=== PATIENT | male | born 1950 | race Caucasian/White ===

== ENCOUNTER 2019-10-06 16:50 | Emergency (ER) | payer BC, MEDICARE ==
[2019-10-06] MEDS ORDERED: Sodium Chloride 0.9% 1000 ML 1,000 ML IV STA (17:07)
[2019-10-06] MEDS ORDERED: solu-MEDROL 125 MG IV ONE (17:08)
[2019-10-06] MEDS ORDERED: DUONEB 0.5-3 MG/3 ml Neb IH ONE ×2 (17:08→17:17)
[2019-10-06 17:20] LABS: Absolute Neutrophil Ct (ANC) 9.93 (1.4-6.9); BASOPHIL % 0.2 % (0.0-0.4); Basophil (Absolute #) 0.03 (0-0.4); Eosinophil % 1.6 % (0.00-5.0); Hematocrit 40.4 % (42-50); Hemoglobin 14.3 gm/dl (12.5-18.0); Lymphocyte (Absolute #) 1.16 (1.0-4.6); Lymphocytes % 9.4 % (24.0-44.0); Mean Cell Volume 90.4 fl (78-100); Mean Corpuscular Hgb Concent. 35.4 g/dl (32-36); Mean Platelet Volume 10.5 fl (7.5-11.0); Monocyte (Absolute #) 1.03 (0.0-1.3); Monocytes % 8.3 % (0.0-12.0); Neutrophil % 80.5 % (36.0-66.0); Platelet Count 298 K/mm3 (150-450); Red Blood Count 4.47 M/mm3 (4.1-5.6); Red Cell Distribution Width 14.2 % (11.5-14.0); White Blood Count 12.4 K/mm3 (4.0-10.5)
[2019-10-06 17:24] VITALS: O2SAT 98
[2019-10-06] MEDS ORDERED: Sodium Chloride 0.9% 1000 ML 1,000 ML ONE (17:25)
[2019-10-06] MEDS ORDERED: solu-MEDROL 125 MG ONE (17:25)
[2019-10-06 17:43] LABS: INR 1.23 (0.8-3.0)
[2019-10-06 17:54] LABS: ANION GAP 12.4 MEQ/L (5-15); Calcium 9.4 mg/dL (8.4-10.2); Creatinine 1 3.75 mg/dL (0.66-1.25); Potassium 3.4 mmol/L (3.5-5.1); Total Protein 7.5 g/dL (6.3-8.2)
[2019-10-06 18:25] VITALS: BP 170/99; PULSE 78
--- NOTE | 2019-10-06 18:47 | ERPHSYRPT ---
- History of Present Illness Time Seen by Provider: 10/06/19 16:55 Historian: patient Exam Limitations: no limitations Patient Subjective Stated Complaint: shortness of breath for over one year. states it got worse over the past month. states he will not go to his primary care doctor. has been taking ibuprophen for body aches. Triage Nursing Assessment: ambulated to room per self. skin w/d, color normal. resp only slightly labored. c/o body aches. Physician History: Patient is here with shortness of breath, cough, cold, congestion. Symptoms have been going on for greater than 1 month. Patient has not seen a primary care physician for. Patient states he continues to smoke cigarettes. He has not seen a primary care doctor recently. States he has no diagnosed history of COPD. Patient does have a greater than 15-year history of a descending aortic aneurysm repair and dissection. Location: chest Quality: SOB, sharp Radiation: none Severity: moderate Duration: acute on chronic Timing: gradual Modifying factors/associated signs and symptoms: none tried Aspirin Treatment Today: no aspirin today Allergies/Adverse Reactions: No Known Drug Allergies Allergy (Unverified 10/06/19 17:19) Home Medications: Amlodipine Besylate [Norvasc] 10 mg PO DAILY 10/06/19 [History] Clopidogrel Bisulfate [Clopidogrel] 75 mg PO DAILY 10/06/19 [History] Metoprolol Tartrate [Lopressor] 50 mg PO DAILY 10/06/19 [History] cloNIDine HCL [Clonidine HCl] 0.2 mg PO BID 10/06/19 [History] Hx Tetanus, Diphtheria Vaccination/Date Given: Yes Hx Influenza Vaccination/Date Given: No Hx Pneumococcal Vaccination/Date Given: Yes - Review of Systems Constitutional: No Fever, No Chills Eyes: No Symptoms Ears, Nose, & Throat: No Symptoms, Nose Congestion Respiratory: Cough, Dyspnea, Wheezing Cardiac: Chest Pain, No Edema, No Syncope Abdominal/Gastrointestinal: No Abdominal Pain, No Nausea, No Vomiting, No Diarrhea Genitourinary Symptoms: No Dysuria Musculoskeletal: No Back Pain, No Neck Pain Skin: No Rash Neurological: No Dizziness, No Focal Weakness, No Sensory Changes Psychological: No Symptoms Endocrine: No Symptoms All Other Systems: Reviewed and Negative - Past Medical History Pertinent Past Medical History: Yes Cardiac History: Aneurysm, Coronary Artery Disease, Hypertension - Past Surgical History Past Surgical History: Yes Cardiac: Cardiac Catheterization, Cardiac Stent, Vascular Surgery Other Surgical History: abd aneurysm surgery twice. - Social History Smoking Status: Current every day smoker How long have you smoked: 50 Exposure to second hand smoke: Yes Drug Use: none Patient Lives Alone: No - Nursing Vital Signs Nursing Vital Signs: Initial Vital Signs Temperature 97.6 F 10/06/19 16:53 Pulse Rate 76 10/06/19 16:53 Respiratory Rate 24 10/06/19 16:53 Blood Pressure 184/113 10/06/19 16:53 O2 Sat by Pulse Oximetry 100 10/06/19 16:53 Pain Scale Pain Intensity 4 - Physical Exam General Appearance: no apparent distress, alert Eye Exam: PERRL/EOMI, eyes nml inspection Ears, Nose, Throat Exam: normal ENT inspection, moist mucous membranes Neck Exam: normal inspection, non-tender, supple, full range of motion Respiratory Exam: normal breath sounds, lungs clear, wheezing (Patient is wheezing throughout, tachypnea, looks uncomfortable), No respiratory distress Cardiovascular Exam: regular rate/rhythm, normal heart sounds, other (Incision under left breast. Abdominal incision is well. Previous aortic repairs.) Gastrointestinal/Abdomen Exam: soft (Incision is well.), No tenderness, No mass Back Exam: normal inspection, No CVA tenderness, No vertebral tenderness Extremity Exam: normal inspection, normal range of motion Neurologic Exam: alert, oriented x 3, cooperative, normal mood/affect, sensation nml, No motor deficits Skin Exam: normal color, warm, dry SpO2: 98 Ordered Tests: Active Orders 24 hr Category Date Time Status Banquet Captain STAT Care 10/06/19 17:08 Active EKG-ER Only STAT Care 10/06/19 17:07 Active IV Insertion STAT Care 10/06/19 17:07 Active Pulse Oximetry (ED) STAT Care 10/06/19 17:07 Active CBC W DIFF Stat Lab 10/06/19 17:12 Completed CMP Stat Lab 10/06/19 17:12 Completed NT PRO BNP Stat Lab 10/06/19 17:12 Completed PROTIME WITH INR Stat Lab 10/06/19 17:12 Completed TROPONIN Q3H Lab 10/06/19 17:12 Completed TROPONIN Q3H Lab 10/06/19 20:15 Ordered TROPONIN Q3H Lab 10/06/19 23:15 Ordered TROPONIN Q3H Lab 10/07/19 02:15 Ordered TROPONIN Q3H Lab 10/07/19 05:15 Ordered Peak Expiratory Flow Rate ONCE RT 10/06/19 17:21 Active Respiratory Therapy Assessment DAILY RT 10/06/19 17:21 Active Medication Summary Discontinued Medications Generic Name Dose Route Start Last Admin Trade Name Freq PRN Reason Stop Dose Admin Albuterol/Ipratropium 3 ml 10/06/19 17:08 10/06/19 17:18 Duoneb 0.5-3 Mg/3 Ml Neb IH 10/06/19 17:09 3 ml STAT ONE Administration Albuterol/Ipratropium Confirm 10/06/19 17:17 Duoneb 0.5-3 Mg/3 Ml Neb Administered 10/06/19 17:18 Dose 3 ml IH .STK-MED ONE Sodium Chloride 1,000 mls @ 999 mls/hr 10/06/19 17:07 10/06/19 17:29 Sodium Chloride 0.9% 1000 Ml IV 10/06/19 18:07 999 mls/hr .Q1H1M STA Administration Sodium Chloride Confirm 10/06/19 17:25 Sodium Chloride 0.9% 1000 Ml Administered 10/06/19 17:26 Dose 1,000 mls @ ud .ROUTE .STK-MED ONE Methylprednisolone Sodium Succinate 125 mg 10/06/19 17:08 10/06/19 17:29 Solu-Medrol 125 Mg IV 10/06/19 17:09 125 mg STAT ONE Administration Methylprednisolone Sodium Succinate Confirm 10/06/19 17:25 Solu-Medrol 125 Mg Administered 10/06/19 17:26 Dose 125 mg .ROUTE .STK-MED ONE Lab/Rad Data: Laboratory Result Diagrams 10/06/19 17:12 10/06/19 17:12 Laboratory Results 10/06/19 10/06/19 10/06/19 Range/Units 17:12 17:12 17:12 WBC (4.0-10.5) K/mm3 RBC (4.1-5.6) M/mm3 Hgb (12.5-18.0) gm/dl Hct (42-50) % MCV (78-100) fl MCH (26-32) pg MCHC (32-36) g/dl RDW (11.5-14.0) % Plt Count (150-450) K/mm3 MPV (7.5-11.0) fl Gran % (36.0-66.0) % Eos # (Auto) (0-0.5) Absolute Lymphs (auto) (1.0-4.6) Absolute Monos (auto) (0.0-1.3) Lymphocytes % (24.0-44.0) % Monocytes % (0.0-12.0) % Eosinophils % (0.00-5.0) % Basophils % (0.0-0.4) % Absolute Granulocytes (1.4-6.9) Basophils # (0-0.4) PT 14.0 H (8.83-12.87) SECONDS INR 1.23 (0.8-3.0) Sodium 142 (137-145) mmol/L Potassium 3.4 L (3.5-5.1) mmol/L Chloride 106 (98-107) mmol/L Carbon Dioxide 28 (22-30) mmol/L Anion Gap 12.4 (5-15) MEQ/L BUN 26 H (9-20) mg/dL Creatinine 3.75 H (0.66-1.25) mg/dL Estimated GFR 17.2 ML/MIN Glucose 180 H (74-106) mg/dL Calcium 9.4 (8.4-10.2) mg/dL Total Bilirubin 1.00 (0.2-1.3) mg/dL AST 33 (17-59) U/L ALT 16 (0-50) U/L Alkaline Phosphatase 124 (38-126) U/L Troponin I 0.039 H* (0.000-0.034) ng/mL NT-Pro-B Natriuret Pep 70708 H (0-900) pg/mL Serum Total Protein 7.5 (6.3-8.2) g/dL Albumin 4.0 (3.5-5.0) g/dL 10/06/19 Range/Units 17:12 WBC 12.4 H (4.0-10.5) K/mm3 RBC 4.47 (4.1-5.6) M/mm3 Hgb 14.3 (12.5-18.0) gm/dl Hct 40.4 L (42-50) % MCV 90.4 (78-100) fl MCH 32.0 (26-32) pg MCHC 35.4 (32-36) g/dl RDW 14.2 H (11.5-14.0) % Plt Count 298 (150-450) K/mm3 MPV 10.5 (7.5-11.0) fl Gran % 80.5 H (36.0-66.0) % Eos # (Auto) 0.20 (0-0.5) Absolute Lymphs (auto) 1.16 (1.0-4.6) Absolute Monos (auto) 1.03 (0.0-1.3) Lymphocytes % 9.4 L (24.0-44.0) % Monocytes % 8.3 (0.0-12.0) % Eosinophils % 1.6 (0.00-5.0) % Basophils % 0.2 (0.0-0.4) % Absolute Granulocytes 9.93 H (1.4-6.9) Basophils # 0.03 (0-0.4) PT (8.83-12.87) SECONDS INR (0.8-3.0) Sodium (137-145) mmol/L Potassium (3.5-5.1) mmol/L Chloride (98-107) mmol/L Carbon Dioxide (22-30) mmol/L Anion Gap (5-15) MEQ/L BUN (9-20) mg/dL Creatinine (0.66-1.25) mg/dL Estimated GFR ML/MIN Glucose (74-106) mg/dL Calcium (8.4-10.2) mg/dL Total Bilirubin (0.2-1.3) mg/dL AST (17-59) U/L ALT (0-50) U/L Alkaline Phosphatase (38-126) U/L Troponin I (0.000-0.034) ng/mL NT-Pro-B Natriuret Pep (0-900) pg/mL Serum Total Protein (6.3-8.2) g/dL Albumin (3.5-5.0) g/dL - Progress Progress: improved Air Movement: good Progress Note: 10/06/19 18:44 Differential diagnosis includes aortic dissection, pulmonary embolism, STEMI, and STEMI, pneumonia, pneumothorax. We will do a broad-based work-up. Patient found to have an elevated troponin, acute kidney injury, atrial fibrillation. Patient is on Plavix. I have a high concern for aortic dissection. I did discuss with on-call printer repair technician. They refused to scan the patient with IV contrast due to the acute kidney injury. I did discuss with the irrigation service technician that a aortic dissection will kill you faster than acute kidney injury. However, she was unwilling to budge from the clinical policy despite it being what is safest and best for the patient. Given this, will need to emergently transfer patient to [facility] for further work-up of possible aortic dissection. I did discuss over the phone with on-call CT surgeon, Dr. Gonzalez and on-call emergency medicine doctor Dr. West. They both understood the reality and the gravity of the situation. For, they immediately accepted the patient for transfer. I did discuss with the patient the high clinical suspicion and concern that patient may have a re-dissection of his aortic aneurysm and the need for transfer. The patient states his understanding. Also understands the morbidity and mortality the situation. ED critical care statement As staff physician, I have provided critical care. Time: 65 Criteria for critical illness: NSTEMI, aortic dissection, hypertensive urgency, COPD exacerbation, elevated troponin Treatment and management provided include: Coordination of management with ETC care team, consultants, and inpatient care team. [id number] assessment of condition and response to therapy. Review and interpretation of emergent diagnostic testing. Medical chart review and completion. Direction and immediate supervision of the following therapy: Critical care was time spent personally by me on the following activities: blood draw for specimens, development of treatment plan with patient or surrogate, discussions with consultants, discussions with primary provider, interpretation of cardiac output measurements, evaluation of patient&# 39;s response to treatment, examination of patient, obtaining history from patient or surrogate, ordering and performing treatments and interventions, ordering and review of laboratory studies, ordering and review of radiographic studies, pulse oximetry, re-evaluation of patient's condition and review of old charts. This time was independent of all procedures performed. Shelton Oropeza Blood Culture(s) Obtained: No Antibiotics given: No - Departure Departure Disposition: In-patient Admission, Transfer, Extended Care Facility Clinical Impression: NSTEMI (non-ST elevated myocardial infarction), Acute renal failure, Elevated troponin, Chest pain, Wheezing Condition: Critical Critical Care Time: Yes Critical Care Time(excluding separately billable procedures): Critical 30-74 mins Referrals: COLLIN MARIA [Primary Care Provider] -
== END 2019-10-06 19:01 | disposition short-term general hospital (02) ==
LOC: ED 16:50
DX: I21.4 Non-ST elevation (NSTEMI) myocardial infarction (principal); N17.9 Acute kidney failure, unspecified; R74.8 Abnormal levels of other serum enzymes; R07.9 Chest pain, unspecified; I25.10 Atherosclerotic heart disease of native coronary artery without angina pectoris; Z79.899 Other long term (current) drug therapy; I10 Essential (primary) hypertension; Z72.0 Tobacco use; I48.91 Unspecified atrial fibrillation; I71.4 Abdominal aortic aneurysm, without rupture; R06.2 Wheezing
CPT/HCPCS: 36000; 36415; 80053; 83880; 84484; 85025; 85610; 93005; 93041; 94150; 94640; 94760; 96360; 96374; 99284; 99291; J2930; A9270-GY

== ENCOUNTER 2019-10-12 19:13 | Emergency (ER) | payer BC, MEDICARE ==
--- NOTE | 2019-10-12 19:18 | ERPHSYRPT ---
- History of Present Illness Time Seen by Provider: 10/12/19 19:18 Source: patient, family Exam Limitations: no limitations Physician History: Is a 69-year-old gentleman who presents with urinary retention. The patient does have a history of coronary artery disease, renal failure (chronic), hypertension and was recently seen, 10/06/2019, for a non-STEMI and transferred to another facility. At the other facility patient did undergo a intravenous contrast study. They did mention to him that he might have some problems urinating. In the last few days, the patient has had difficulty urinating. However, the patient and his spouse state that he has intermittent issues with urinary retention because of a prostate issue. Patient denies chest pain. He has some suprapubic pressure. Patient denies shortness of breath. Timing/Duration: day(s) (Couple of), intermittent, worse Activites at Onset: none Quality: pressure Onset Location: suprapubic Pain Radiation: none Severity of Pain-Max: mild Severity of Pain-Current: mild Modifying Factors: Improves With: other (Unable to urinate) Associated Symptoms: other (Unable to urinate) Sexual intercourse history: non-contributory Allergies/Adverse Reactions: No Known Drug Allergies Allergy (Verified 10/12/19 19:44) Home Medications: Amlodipine Besylate [Norvasc] 10 mg PO DAILY 10/06/19 [History] Clopidogrel Bisulfate [Clopidogrel] 75 mg PO DAILY 10/06/19 [History] Metoprolol Tartrate [Lopressor] 50 mg PO DAILY 10/06/19 [History] cloNIDine HCL [Clonidine HCl] 0.2 mg PO BID 10/06/19 [History] Hx Tetanus, Diphtheria Vaccination/Date Given: Yes Hx Influenza Vaccination/Date Given: No Hx Pneumococcal Vaccination/Date Given: Yes - Past Medical History Pertinent Past Medical History: Yes Neurological History: No Pertinent History ENT History: No Pertinent History Cardiac History: Aneurysm, Coronary Artery Disease, Hypertension Respiratory History: No Pertinent History Endocrine Medical History: No Pertinent History Musculoskeletal History: No Pertinent History GI Medical History: No Pertinent History History: Renal Disease, Other (Prostate problems) Psycho-Social History: No Pertinent History - Past Surgical History Past Surgical History: Yes Cardiac: Cardiac Catheterization, Cardiac Stent, Vascular Surgery Respiratory: No Pertinent History Gastrointestinal: No Pertinent History Genitourinary: No Pertinent History Musculoskeletal: No Pertinent History Male Surgical History: No Pertinent History Other Surgical History: abd aneurysm surgery twice. - Social History Smoking Status: Current every day smoker How long have you smoked: 50 Exposure to second hand smoke: Yes Drug Use: none Patient Lives Alone: No - Review of Systems Constitutional: No Symptoms Eyes: No Symptoms Ears, Nose, & Throat: No Symptoms Respiratory: No Symptoms Cardiac: No Symptoms Abdominal/Gastrointestinal: Other (Suprapubic pressure) Genitourinary Symptoms: Urinary Retention Musculoskeletal: No Symptoms Skin: No Symptoms Neurological: No Symptoms Psychological: No Symptoms Endocrine: No Symptoms Hematologic/Lymphatic: No Symptoms Immunological/Allergic: No Symptoms All Other Systems: Reviewed and Negative - Nursing Vital Signs Nursing Vital Signs: Initial Vital Signs Temperature 97.7 F 10/12/19 19:26 Pulse Rate 76 10/12/19 19:26 Respiratory Rate 20 10/12/19 19:26 Blood Pressure 188/124 10/12/19 19:26 O2 Sat by Pulse Oximetry 100 10/12/19 19:26 Pain Scale Pain Intensity 10 - Physical Exam General Appearance: mild distress, alert, anxiety Eye Exam: PERRL/EOMI, eyes nml inspection Ears, Nose, Throat Exam: normal ENT inspection, moist mucous membranes Neck Exam: normal inspection, non-tender, supple, full range of motion Respiratory Exam: normal breath sounds, lungs clear, No chest tenderness, No respiratory distress Cardiovascular Exam: regular rate/rhythm, normal heart sounds, normal peripheral pulses Gastrointestinal/Abdomen Exam: soft, normal bowel sounds, distention (Suprapubic ), No guarding, No rebound Rectal Exam: not done Male Genital Exam: normal genitalia, no hernia Back Exam: normal inspection, normal range of motion, No CVA tenderness, No vertebral tenderness Extremity Exam: normal inspection, normal range of motion, pelvis stable Neurologic Exam: alert, oriented x 3, cooperative, supervisor fur dressing II-XII nml as tested Skin Exam: normal color, warm, dry Lymphatic Exam: No adenopathy SpO2 Interpretation: normal O2 Delivery: Room Air - Course Nursing assessment & vital signs reviewed: Yes Ordered Tests: Active Orders 24 hr Category Date Time Status Catheter-Karthaus Patricio STAT Care 10/12/19 19:28 Active BMP Stat Lab 10/12/19 19:30 Completed CULTURE,URINE Stat Lab 10/12/19 20:26 Received UA W/RFX UR CULTURE Stat Lab 10/12/19 20:26 Completed Lab/Rad Data: Laboratory Result Diagrams 10/12/19 19:30 Laboratory Results 10/12/19 10/12/19 Range/Units 20:26 19:30 Sodium 143 (137-145) mmol/L Potassium 3.3 L (3.5-5.1) mmol/L Chloride 107 (98-107) mmol/L Carbon Dioxide 25 (22-30) mmol/L Anion Gap 14.5 (5-15) MEQ/L BUN 34 H (9-20) mg/dL Creatinine 4.42 H (0.66-1.25) mg/dL Estimated GFR 14.3 ML/MIN Glucose 147 H (74-106) mg/dL Calcium 9.2 (8.4-10.2) mg/dL Urine Color RED (YELLOW) Urine Appearance SLIGHTLY CLOUDY (CLEAR) Urine pH 6.0 (5-6) Ur Specific [place] 1.017 (1.005-1.025) Urine Protein >=500 (Negative) Urine Ketones NEGATIVE (NEGATIVE) Urine Blood LARGE (0-5) Jesús/ul Urine Nitrite NEGATIVE (NEGATIVE) Urine Bilirubin NEGATIVE (NEGATIVE) Urine Urobilinogen NEGATIVE (0-1) mg/dL Ur Leukocyte Esterase NEGATIVE (NEGATIVE) Urine WBC (Auto) 6-10 (0-5) /HPF Urine RBC (Auto) >101 (0-2) /HPF U Epithel Cells (Auto) RARE (FEW) /HPF Urine Bacteria (Auto) NONE (NEGATIVE) /HPF Urine Mucus (Auto) SLIGHT (NEGATIVE) /HPF Urine Culture Reflexed ORDERED SEPARATELY (NO) Urine Glucose 150 (NEGATIVE) mg/dL - Progress Progress: improved, pain not gone completely, re-examined Progress Note: 10/12/19 20:03 A Patricio catheter was placed. Approximately 500 mL of blood-tinged urine immediately was drained. Patient experienced immediate relief of his suprapubic pain/pressure. 10/12/19 20:57 Urine is still decompressing the patient's bladder. Patient states that he is much more comfortable now. He does not have significant abdominal pain any longer. Suprapubic pressure has been relieved. Counseled pt/family regarding: lab results, diagnosis, need for follow-up - Departure Departure Disposition: Home Clinical Impression: Renal failure, Urinary retention Condition: Stable Critical Care Time: No Referrals: COLLIN MARIA [Primary Care Provider] - Additional Instructions: Continue Patricio catheter. Call the game show host group doctors Alexis Moncada, and Kalen. Call them tomorrow morning to arrange a follow-up appointment for further evaluation of your kidneys.
[2019-10-12 20:22] LABS: ANION GAP 14.5 MEQ/L (5-15); Calcium 9.2 mg/dL (8.4-10.2); Creatinine 1 4.42 mg/dL (0.66-1.25); Potassium 3.3 mmol/L (3.5-5.1)
[2019-10-12 20:32] LABS: Appearance SLIGHTLY CLOUDY (CLEAR); Bilirubin NEGATIVE (NEGATIVE); Blood LARGE Ery/ul (0-5); Epithelial Cells RARE /HPF (FEW); Glucose 150 mg/dL (NEGATIVE); Ketones NEGATIVE (NEGATIVE); Leukocyte Esterase NEGATIVE (NEGATIVE); Mucus SLIGHT /HPF (NEGATIVE); Nitrite NEGATIVE (NEGATIVE); Protein,Urine Dip >=500 (Negative); Specific Gravity 1.017 (1.005-1.025); Urobilinogen NEGATIVE mg/dL (0-1)
[2019-10-12 20:37] LABS: RBC >101 /HPF (0-2)
[2019-10-12] MEDS ORDERED: Catapres 0.1 MG PO ONE (21:22)
[2019-10-12] MEDS ORDERED: Catapres 0.1 MG ONE (21:33)
[2019-10-12 22:01] VITALS: PULSE 92; O2SAT 97
[2019-10-12 22:41] VITALS: BP 165/120
== END 2019-10-12 22:40 | disposition home or self-care (01) ==
LOC: ED 19:13
DX: N19 Unspecified kidney failure (principal); R33.9 Retention of urine, unspecified
CPT/HCPCS: 36415; 51702; 80048; 81001; 87086; 99284; A9270-GY